=== PATIENT | female | born 1950 ===

== ENCOUNTER 2017-12-07 13:58 | Emergency (ER) | payer OTHER ==
[~2017-12-07] VITALS: Ht 149.9 cm; Wt 91.8 kg
[~2017-12-07 13:58] MED LIST: B-COTAB18 PO; CITA10TA8 PO; CONJ.6255 PO; LYSI100010 PO; NAPR1TAB9 PO; NXM/40 PO; PSYL55.43 PO; TYLOTC500 PO; VITACAP37 PO; ZINC1TAB PO; [UNRECOGNIZED DRUG - REMARK] PO
[2017-12-07 14:03] VITALS: TEMP 36.7; Ht 149.9 cm; Wt 91.8 kg
[2017-12-07] MEDS ORDERED: LIDOCAINE 4% CREAM 15 GM TUBE EXT STA (14:42)
[2017-12-07] MEDS ORDERED: METR-163 PO (14:45)
--- NOTE | 2017-12-07 14:53 | EMERGENCY ROOM VISIT NOTE ---
History First contact with patient: 14:11 Chief Complaint: PELVIC PAIN Stated Complaint: ITCHY BROOK History of Present Illness The patient is a 67 year old female who presents to the Emergency Room with complaints of vaginal itching and pain for the last 2 weeks. The patient saw her inverted block operator. She was initially treated for bacterial vaginosis with a vaginal cream, which she said made her symptoms worse. The patient also was treated for a yeast infection with no improvement. The patient went back to her inverted block operator. She was prescribed Flagyl, which seems to be helping with the internal vaginal discomfort and itching. She still complains of severe itching and pain on the labia majora particularly in the hair level. She describes it as a "biting sensation." She is not sexually active. She has been through menopause. No fever or chills. The patient's inverted block operator also prescribed triamcinolone cream, which provides mild relief. She denies any new soaps, lotions or detergents. Review of Systems 10 system review performed and negative unless noted in HPI or below Past Medical/Surgical History Status post cholecystectomy Family History Diabetes, heart disease Social History Smoking Status: Never Smoker Alcohol Use: none Current/Historical Medications Scheduled Acetaminophen (Tylenol), 1,000 MG PO BID B-Complex Vitamins (Vitamin B Complex), 3 TABS PO QAM Esomeprazole Magnesium (Nexium), 40 MG PO QAM Lidocaine Hcl (Lidocaine), 1 APPLN TD Q6H Lysine Hcl (Lysine), 500 MG PO QAM Metronidazole (Flagyl), 500 MG PO BID Naproxen (Aleve), 220 MG PO BID Psyllium (Metamucil Powder), 1 PACK PO QAM Vitamin E (E-400), 400 PO QAM Zinc Gluconate (Zinc), 50 MG PO QAM [iron ?? dose], 1 TAB PO QAM Scheduled PRN Hydrocodone/Acetaminophen 5MG/325MG ([place] 5MG/325MG), 1-2 TABLET PO Q4H PRN for Pain Physical Exam Vital Signs Date Time Temp Pulse Resp B/P (MAP) Pulse Ox O2 Delivery O2 Flow Rate FiO2 12/07/17 16:14 70 20 169/81 96 12/07/17 15:12 74 20 172/89 95 Room Air 12/07/17 14:03 36.7 84 20 96 Room Air Physical Exam VITALS: Vitals are noted on the nurse's note and reviewed by myself. Vital signs stable. GENERAL: 67-year-old female, in no acute distress, nondiaphoretic, well- developed well-nourished. SKIN: The skin was without rashes, erythema, edema, or bruising. T HEAD: Normocephalic atraumatic. : External genitalia reveal 3, approximately 1 mm, circular, flat, bluish colored lesions on the right labia minora. Minor erythema and irritation noted of the introitus. Speculum exam reveals no vaginal discharge in the vaginal vault. The cervix is pink. No lesions. No foul odor noted. MUSCULOSKELETAL: Strength 5/5 throughout. NEURO: Patient was alert and oriented to person place and time. Normal sensation to touch. No focal neurological deficits. Medical Decision & Procedures Laboratory Results Test 12/07/17 14:30 12/07/17 14:35 Urine Color DK YELLOW Urine Appearance CLOUDY (CLEAR) Urine pH 5.5 (4.5-7.5) Urine Specific [place] 1.027 (1.000-1.030) Urine Protein NEG (NEG) Urine Glucose (UA) NEG (NEG) Urine Ketones NEG (NEG) Urine Occult Blood NEG (NEG) Urine Nitrite NEG (NEG) Urine Bilirubin NEG (NEG) Urine Urobilinogen NEG (NEG) Urine Leukocyte Esterase NEG (NEG) Urine WBC (Auto) 0 /hpf (0-5) Urine RBC (Auto) 0-4 /hpf (0-4) Urine Hyaline Casts (Auto) 1-5 /lpf (0-5) Urine Epithelial Cells (Auto) 10-20 /lpf (0-5) Urine Bacteria (Auto) NEG (NEG) Urine Crystals (NONE PRSENT) Urine Yeast (Auto) (NONE PRSENT) Date/Time Source Procedure Growth Status 12/07/17 14:35 Cervix Swab Trichomonas Preparation - Final Complete Medications Administered Medications (Trade) Dose Ordered Sig/Devin Route Start Time Stop Time Status Last Admin Dose Admin Lidocaine (AneCream 4%) 1 appln ONE STAT EXT 12/07/17 14:42 12/07/17 14:43 DC 12/07/17 14:55 1 APPLN Acetaminophen/ Hydrocodone Bitart ([place] 5/325mg Home Pack) 1 homepack UD ONCE PO 12/07/17 16:15 12/07/17 16:16 DC 12/07/17 16:[address] [facility] ED Course The patient was seen and examined. She was given lidocaine cream Upon reevaluation, the patient's pain was slightly improved. We discussed results. She voiced understanding, was comfortable being discharged home. Discharge instructions were reviewed, and she was discharged in good condition Medical Decision Differential diagnosis: Odette vaginitis, bacterial vaginosis, dermatitis, with malignancy, parasitic infection, lichen simplex This patient is a 67-year-old female that presents to the emergency department with severe vaginal itching and pain. She has been treated for reportedly a yeast infection in addition to bacterial vaginosis with minimal improvement of her symptoms. On exam, she did not have any signs of infection. No discharge or odor. She did have 3 punctate flat lesions on the right labia minora. They were not herpetic in nature. The patient was treated with topical lidocaine, with fairly good symptomatic relief. I believe she needs close follow-up with SOCIAL SCIENCE ANALYST for possible further evaluation such as biopsy. Patient is in agreement with this plan. She will return with any worsening symptoms. This chart was completed in part utilizing [employer] Speech Voice Recognition software. Attempts were made to minimize the grammatical errors, random word insertions, pronoun errors and incomplete sentences. Any formal questions or concerns about the content, text or information contained within the body of this dictation should be directly addressed to the provider for clarification. Medication Reconcilliation Current Medication List: was personally reviewed by me Blood Pressure Screening Patient's blood pressure: Elevated blood pressure Blood pressure disposition: Did not require urgent referral Impression Primary Impression: Vulvar pain Departure Information Dispostion Home / Self-Care Condition GOOD Prescriptions Lidocaine Hcl (LIDOCAINE) 3 % Cre 1 APPLN TD Q6H for Pain, #1 TUBE Prov: Hilary Swenson PA-C 12/07/17 Hydrocodone/Acetaminophen 5MG/325MG ([place] 5MG/325MG) Tab 1-2 TABLET PO Q4H Y for Pain, #10 TAB For Initial Treatment Prov: Hilary Swenson PA-C 12/07/17 Referrals No Doctor, Assigned (PCP) Patient Instructions My [facility] Additional Instructions Please follow-up with your SOCIAL SCIENCE ANALYST doctor as scheduled this week Continue current medications as prescribed Please apply lidocaine cream to the OUTSIDE of the vaginal area every 6 hours as needed for discomfort 1-2 tabs every 4 hours (particularly at night) for severe pain only. Do not drink alcohol or drive while taking this medication. This may be taken with ibuprofen, but avoid Tylenol. Please do not hesitate to return to the emergency department with any new, worsening or concerning pain It was a pleasure participating in your care today
[2017-12-07] MEDS ORDERED: HYDR-5688 PO (15:59)
[2017-12-07] MEDS ORDERED: LIDO1CRE TD (16:08)
[2017-12-07 16:14] VITALS: BP 169/81; PULSE 70; O2SAT 96
[2017-12-07] MEDS ORDERED: NORCO 5/325MG HOME PACK PO ONE (16:15)
--- NOTE | 2017-12-10 15:29 | Pharmacy Progress Note ---
ED Pharmacist Culture FollowUp Date of Service: Dec 10, 2017. Gardnerella vaginalis isolated from pelvic culture. Isolation does not always mean infection. Clue cells negative. Patient was already receiving metronidazole per her web services professional which should cover the Gardnerella growing from the patient's pelvic culture. No further intervention required by ED staff.
== END 2017-12-07 16:15 | disposition home or self-care (01) ==
LOC: C.EDB 13:59
DX: N94.819 Vulvodynia, unspecified (principal); L98.9 Disorder of the skin and subcutaneous tissue, unspecified

== ENCOUNTER 2020-06-13 12:15 | Observation (INO) ==
--- NOTE | 2020-05-06 15:54 | PAT Medication Instructions ---
Medication Instructions Date of Service May 06, 2020 Home Medications Vitamin C 1 dose PO QAM Vitamin D3 1 dose PO QAM citalopram [Celexa] 10 mg PO QAM clobetasol 1 applic TOPICAL UD PRN esomeprazole magnesium [Nexium] 40 mg PO QAM ferrous sulfate [iron] 325 mg PO QAM lysine 1 dose PO QAM magnesium 1 dose PO QAM meloxicam 15 mg PO QAM vitamin E 1 dose PO QAM zinc 1 dose PO QAM ASK your surgeon for instructions meloxicam 15 mg PO QAM STOP taking 2 weeks before surgery vitamin E 1 dose PO QAM zinc 1 dose PO QAM lysine 1 dose PO QAM STOP taking 24 hours before surgery clobetasol 1 applic TOPICAL UD PRN DO NOT take the morning of surgery ferrous sulfate [iron] 325 mg PO QAM magnesium 1 dose PO QAM Vitamin C 1 dose PO QAM Vitamin D3 1 dose PO QAM Take morning of surgery With a small sip of water, OTHERWISE NOTHING TO EAT OR DRINK AFTER MIDNIGHT: citalopram [Celexa] 10 mg PO QAM esomeprazole magnesium [Nexium] 40 mg PO QAM Other Notes If you have any questions please call us at [phone] or [phone] or [phone] or [phone]
--- NOTE | 2020-05-10 13:08 | Anesthesiology Consultation ---
Date of Service May 10, 2020 Assessment & Plan (1) Encounter for pre-operative examination: Chart Review Chart Review: Acceptable Risk for Surgery (pending preop Covid testing ) and Patient seen in Pre Admission Testing Per PAT appt on 05/05/20, patient denies any recent travel. No known Covid positive contacts or Covid related symptoms. Educated patient to follow up with surgeon's office regarding Covid testing. Educated on importance of self quarantining, social distancing and wearing mask in public both for the patient and household contacts. Teaching & Discussion Pre-Anesthesia Teaching/Discussion Notes: Instructed NPO after midnight before surgery,except medications with 15 cc of water. Medication instructions provided according to the PAT guidelines. History Surgery Operation Date: 06/13/20 08:40 Proposed Procedures p Right Total Knee Arthroplasty - Woo Hua MD Height/Weight Height: 4 ft 11.5 in Weight: 85.4 kg Allergies Allergy/AdvReac Type Severity Reaction Status Date / Time Bactrim Allergy Unknown mouth rash Verified 12/07/17 14:46 and swelling Sulfa (Sulfonamide Allergy Unknown mouth Verified 05/05/20 12:42 Antibiotics) rash;mouth swells sulfamethoxazole Allergy Unknown mouth rash Verified 05/05/20 12:42 and swelling trimethoprim Allergy Unknown mouth rash Verified 05/05/20 12:42 and swelling Medications Home Medications Medication Instructions Recorded Confirmed Last Taken Vitamin C 1 dose PO QAM 05/05/20 05/05/20 Unknown Vitamin D3 1 dose PO QAM 05/05/20 05/05/20 Unknown citalopram [Celexa] 10 mg PO QAM 05/05/20 05/05/20 Unknown clobetasol 1 applic TOPICAL UD PRN 05/05/20 05/05/20 Unknown esomeprazole magnesium [Nexium] 40 mg PO QAM 05/05/20 05/05/20 Unknown ferrous sulfate [iron] 325 mg PO QAM 05/05/20 05/05/20 Unknown lysine 1 dose PO QAM 05/05/20 05/05/20 Unknown magnesium 1 dose PO QAM 05/05/20 05/05/20 Unknown meloxicam 15 mg PO QAM 05/05/20 05/05/20 Unknown vitamin E 1 dose PO QAM 05/05/20 05/05/20 Unknown zinc 1 dose PO QAM 05/05/20 05/05/20 Unknown Past Medical History Medical History (Updated 05/10/20 @ 13:25 by Criselda Simmons PA-C) Depression Stable and controlled GERD (gastroesophageal reflux disease) Well controlled and stable History of cardiac murmur as a child No current issues MELITON (obstructive sleep apnea) Minimal - no device needed Urinary leakage Mild - stress incontinence Exercise / Class Metabolic Activity II 4-5 Yardwork/Stairs/Walk up hill (one flight of stairs- no chest pain or SOB) Past Family History Family History Father Diabetes Other No family history of adverse response to anesthesia Past Surgical History Surgical History History of bilateral breast reduction surgery History of cholecystectomy History of colonoscopy History of lumbar surgery History of open reduction and internal fixation (ORIF) procedure LUE History of tonsillectomy History of tooth extraction Past Anesthesia History No Hx of Anesthesia Complications and No Family Hx of Anesthesia Complications History of PONV No Hx of PONV and No Hx of Motion Sickness Social History Smoking Status: Never smoker Do You Dip or Chew Tobacco: No Hx Alcohol Use: Yes Alcohol type: wine alcohol intake frequency: holidays/special occasions only Hx Substance Use: No substance use type: does not use Review of Systems Occ snoring- does have very mild sleep apnea- no device needed Patient denies chest pain, shortness of breath, dyspnea on exertion, cough, wheezing, palpitations. No hx of seizures, stroke, NE. No hx of blood clots or blood transfusions Physical Exam Vital Signs VITALS BP 145/79 P 75 TEMP 98.7 SP02 94% RESP 16 Constitutional no acute distress ENMT Mouth: no TMJ clicking Thyromental Distance: > or= 3.5 Finger Breadths (3.5) Mallampati Class: III Missing molars Crowns to molars Neck neck extension not limited Respiratory normal respiratory effort; no respiratory distress Auscultation: lungs clear to auscultation bilaterally; no wheezes Cardiovascular Rate/Rhythm: regular rate and regular rhythm Heart Sounds: no murmur Vessels: no carotid bruit Musculoskeletal Spine: no pain with cervical ROM Neurologic moves all extremities Psychiatric Orientation: alert Testing Laboratory Results 05/10/20 13:23 05/10/20 13:23 PT 10.9 Seconds (9.0-12.0) 05/10/20 13:23 INR 1.0 (0.9-1.1) 05/10/20 13:23 APTT 29.1 Seconds (21.0-31.0) 05/10/20 13:23 Hemoglobin A1c 6.1 % (4.5-5.6) H 05/10/20 13:23 Urine Color Dark Yellow 05/10/20 13:23 Urine Appearance Clear (Clear) 05/10/20 13:23 Urine pH 6.0 (4.5-7.5) 05/10/20 13:23 Ur Specific [place] 1.017 (1.000-1.030) 05/10/20 13:23 Urine Protein Negative (Negative) 05/10/20 13:23 Urine Glucose (UA) Negative (Negative) 05/10/20 13:23 Urine Ketones Negative (Negative) 05/10/20 13:23 Urine Nitrite Negative (Negative) 05/10/20 13:23 Ur Leukocyte Esterase 1+ (Negative) H 05/10/20 13:23 Urine WBC (Auto) 1-5 /hpf (0-5) 05/10/20 13:23 Urine RBC (Auto) 0-4 /hpf (0-4) 05/10/20 13:23 U Hyaline Cast (Auto) 0 /lpf (0-5) 05/10/20 13:23 U Epithel Cells (Auto) 10-20 /lpf (0-5) H 05/10/20 13:23 Urine Bacteria (Auto) Negative (Negative) 05/10/20 13:23 Blood Type A Positive 05/10/20 13:23 Antibody Screen NEGATIVE 05/10/20 13:23 Electrocardiogram Date: 05/10/20 Findings: + NSR @ (74) Normal EKG. Chest X-Ray Date: 05/10/20 Findings: + NAD
--- NOTE | 2020-05-10 13:54 | XRay Report ---
XR chest Pre-admission PA/Lat HISTORY: Preop. COMPARISON: Chest 09/07/2013. FINDINGS: The lungs are clear. Cardiac silhouette is normal in size. No pleural effusions. No pneumot horax. Cortical plate and screws partially visualized within the mid shaft of the left humerus. Old m ild anterior wedge-shaped compression deformity within the lower thoracic spine remains unchanged. Pa rtially visualized lumbar spinal fusion hardware is noted. IMPRESSION: No significant change compared to the prior study. No acute process. ACT 112: Negative or not required by law. Electronically signed by: Luiz Arreguin M.D. 05/10/2020 1:52 PM
[2020-05-10 14:21] LABS: Basophils # (auto) 0.02 K/uL (0-0.2); Basophils % (auto) 0.3 %; Eosinophils # (auto) 0.21 K/uL (0-0.5); Eosinophils % (auto) 3.2 %; Hematocrit (blood only) 37.1 % (37-47); Hemoglobin 12.1 g/dL (12.0-16.0); Immature Granulocytes # (auto) 0.01 K/uL (0.00-0.02); Immature Granulocytes % (auto) 0.2 %; Lymphocytes # (auto) 2.72 K/uL (1.2-3.4); Mean Corpuscular Hemoglobin 29.4 pg (25-34); Mean Corpuscular Hgb Conc 32.6 g/dL (32-36); Mean Corpuscular Volume 90.3 fL (80-100); Mean Platelet Volume 11.3 fL (7.4-10.4); Monocytes # (auto) 0.43 K/uL (0.11-0.59); Monocytes % (auto) 6.6 %; Neutrophils # (auto) 3.09 K/uL (1.4-6.5); Neutrophils % (auto) 47.7 %; Platelet Count 241 K/uL (130-400); RDW Coefficient of Variation 13.4 % (11.5-14.5); RDW Standard Deviation 44.1 fL (36.4-46.3); Red Blood Count 4.11 M/uL (4.2-5.4); White Blood Count 6.48 K/uL (4.8-10.8)
[2020-05-10 14:28] LABS: Estimated Average Glucose 128 mg/dl; Hemoglobin A1C 6.1 % (4.5-5.6)
[2020-05-10 14:33] LABS: Partial Thromboplastin Time 29.1 Seconds (21.0-31.0); Prothrombin Time 10.9 Seconds (9.0-12.0)
[2020-05-10 14:39] LABS: Appearance Urine Clear (Clear); Bacteria Urine Automated Negative (Negative); Bilirubin Urine Negative (Negative); Blood Urine Negative (Negative); Cast Urine Automated 0 /lpf (0-5); Color Urine Dark Yellow; Glucose Urine UA Negative (Negative); Ketones Urine Negative (Negative); Leukocyte Esterase Urine 1+ (Negative); Nitrite Urine Negative (Negative); Protein Urine Negative (Negative); Specific Gravity Urine 1.017 (1.000-1.030); Urobilinogen Urine Negative (Negative)
[2020-05-10 14:52] LABS: Albumin Level 3.9 gm/dl (3.4-5.0); BUN Creatinine Ratio 23.7 (10-20); Calcium 9.4 mg/dl (8.5-10.1); Creatinine Clr Calc Pharmacy 65.3 ml/min; Est GFR (African American) 89.9; Est GFR (Non-African American) 77.6; RBC Urine Automated 0-4 /hpf (0-4)
--- NOTE | 2020-05-10 15:22 | Electrocardiogram Report ---
Test Reason : Blood Pressure : / mmHG Vent. Rate : 074 BPM Atrial Rate : 074 BPM P-R Int : 136 ms QRS Dur : 074 ms QT Int : 404 ms P-R-T Axes : 057 061 045 degrees QTc Int : 448 ms Normal sinus rhythm Normal ECG When compared with ECG of 07-SEP-2013 10:57, No significant change was found Confirmed by Brenden Villa ([id number]) on 05/10/2020 3:22:04 PM Referred By: Woo Hua Confirmed By:Brenden Villa
--- NOTE | 2020-06-12 15:22 | History and Physical Report ---
DATE OF ADMISSION: 06/13/2020 CHIEF COMPLAINT: Chronic right knee pain and instability. HISTORY OF PRESENT ILLNESS: This is a 70-year-old female patient of Dr. Hua'eric complaining of chronic right knee pain and instability, longstanding, now progressively getting worse. The patient has failed conservative treatment including intraarticular injections, anti-inflammatories, Tylenol, the use of a brace and home exercise programs. The patient has increased pain with weightbearing activities and her pain does interfere with her activities of daily living. She has been diagnosed with end-stage osteoarthritis per clinical and radiographic exams and wishes to proceed with a right total knee arthroplasty. PAST MEDICAL HISTORY: Sleep apnea, anxiety, back problems, acid reflux, obesity, history of breast cancer. SOCIAL HISTORY: Nonsmoker and nondrinker. PAST SURGICAL HISTORY: Back surgery, breast reduction surgery, left arm fracture surgery and gallbladder surgery. FAMILY HISTORY: Noncontributory. REVIEW OF SYSTEMS: Chronic right knee pain and instability. Otherwise, denies any shortness of breath, chest pain, nausea, vomiting or other joint complaints. MEDICATIONS: 1. Nexium 40 mg daily. 2. Meloxicam 15 mg daily. 3. Celexa 10 mg daily. 4. Iron 325 mg daily. 5. Vitamin E 1000 units daily. 6. Calcium 600 mg daily. ALLERGIES: BACTRIM, WHICH CAUSES HIVES AND SWOLLEN MOUTH. PHYSICAL EXAMINATION: GENERAL: Well-developed, well-nourished 69-year-old female in no acute distress. She is alert and oriented x3 and pleasant. HEENT: Normocephalic, atraumatic. Extraocular motions are intact. Pupils are equal and reactive to light. HEART: Regular rate and rhythm, no murmurs. LUNGS: Clear. ABDOMEN: Soft and nontender. Bowel sounds present. EXTREMITIES: Right knee, 0 to 120 range of motion. Positive effusion. Medial joint line tenderness, varus deformity, 4/5 strength with pain and crepitation. Neurologically and neurovascularly, she is intact in her right lower extremity. DIAGNOSES: Right knee end-stage osteoarthritis, sleep apnea, anxiety, osteoarthritis, back problems, acid reflux, obesity, history of breast cancer. PLAN: The patient was advised of her diagnosis. Indications, risks, benefits, postop course have all been reviewed. The patient wished to proceed with a right total knee arthroplasty. Necessary consent forms, preoperative testing and clearances will be obtained.
[~2020-06-13 12:15] MED LIST changes: +ACETAMINOPHEN 500 MG TAB PO SCH; -B-COTAB18 PO; +BUPIVACAINE 0.25% 30 ML VIAL ONE; +BUPIVACAINE 0.5 % 5 MG/1 ML PF 10ML VIAL ONE; -CITA10TA8 PO; -CONJ.6255 PO; +FAMOTIDINE 20 MG TAB PO SCH; +GABAPENTIN 300 MG CAP PO SCH; +LIDOCAINE HCL 2% 2 ML VIAL/AMP(20MG/ML) INFIL ONE; +LR 500ML BOLUS, THEN 15ML/HR IV SCH; -LYSI100010 PO; +METOCLOPRAMIDE HCL 10 MG TABLET PO SCH; +MIDAZOLAM HCL 1 MG/ML 2ML VIAL ONE; -NAPR1TAB9 PO; -NXM/40 PO; +PROPOFOL IV EMULSION 10 MG/ML 20 ML VIAL IV ONE; -PSYL55.43 PO; +ROPIVACAINE 0.5% HCL/PF 150 MG, BUPIVACAINE 0.5% MPF 30 ML, EPINEPHrine 30MG/30ML (OR U... INSTIL SCH; +TRANEXAMIC ACID 1,000 MG **IV Pre-op IV SCH; -TYLOTC500 PO; -VITACAP37 PO; -ZINC1TAB PO; -[UNRECOGNIZED DRUG - REMARK] PO; +ceFAZolin 2000MG 2,000 MG/15 ML SYR IV SCH; +dexAMETHasone 4 MG TAB PO SCH
[2020-06-13] MEDS ORDERED: ATROPINE SULFATE 0.1 MG/ML 10ML SYR IV PRN (12:38)
[2020-06-13] MEDS ORDERED: HYDROmorphone INJ 1 MG/ML SYRINGE IV PRN (12:38)
[2020-06-13] MEDS ORDERED: ONDANSETRON INJ 2 MG/ML 2 ML VIAL IV PRN ×2 (12:38→18:00)
[2020-06-13] MEDS ORDERED: fentaNYL citrate 100 MCG/2 ML VIAL IV PRN (12:38)
[2020-06-13] MEDS ORDERED: ePHEDrine sulfate 50 MG/ML AMP IV PRN (12:38)
[2020-06-13] MEDS: TRANEXAMIC ACID 1,000 MG **IV Intra-op IV SCH ×2 (12:54→15:36)
[2020-06-13] MEDS ORDERED: ORTHO JOINT ANESTHETIC ONE (13:23)
[2020-06-13] MEDS ORDERED: BACITRACIN INJ 50,000 UNIT VIAL ONE (13:23)
--- NOTE | 2020-06-13 13:42 | History & Physical Bridge Note ---
Date of Service June 13, 2020 History & Physical Bridge Note I have examined the patient, reviewed the History & Physical and in the interval since the performance of the History & Physical I have noted the following changes of clinical significance: no changes noted
--- NOTE | 2020-06-13 15:35 | Operative Report ---
Post Operative Report Pre & Post Diagnosis Operation Date: 06/13/20 14:50 Pre-Op Diagnosis: Right Knee Osteoarthritis Post-Op Diagnosis: Right Knee Osteoarthritis I identified the patient and participated in the time-out.: Yes Procedure Operation Date: 06/13/20 14:50 Actual Procedures p Right Total Knee Arthroplasty(Right) - Woo Hua MD Surgeon Woo Hua MD Concrete Analyst Jasbir ARCE Estimated Blood Loss 5 Findings Consistent with Post-Op Diagnosis Specimens Bone cuts Drains 2 Hemovac Anesthesia Type MAC Spinal Regional Complications none Disposition Accompanied Patient To Recovery: No Disposition: Recovery Room Indications 70-year-old female progressive osteoarthritis in right knee. Patient has patellofemoral medial compartment osteoarthritis varus knee [id number] medial compartment some stretching of her lateral collateral ligament. Description of Procedure Patient was taken to the operating room placed supine on the operating table and anesthetized under spinal MAC regional anesthesia. Exam under anesthesia demonstrated tight medial compartment laxity LCL 0 through 140 degrees range of motion no AP instability. A pneumatic tourniquet was placed about the moderately obese thigh of the right lower extremity. The right lower extremity was prepped and draped in usual fashion. The leg was elevated exsanguinated with an Esmarch bandage and the pneumatic was raised to 325 mm mercury. An anterior incision was made across the right knee. The skin was incised longi tudinally subcutaneous flaps were elevated and an incision was made through the medial retinaculum extending up into the mid third of the quadriceps tendon and extended down to the medial tibial tubercle. Intra-articular findings demonstrated mid compartment and patellofemoral OA. Grade 3 patellofemoral OA with osteophytes around the entire patella and grade 4 medial compartment osteoarthritis with eburnated bone. The knee was exposed by excising the infrapatellar fat pad, excising the meniscal remnants and anterior cruciate ligament. Any inflamed synovial tissue was resected. The fat pad over the anterior femur was resected for placement of the component in that area. The lateral synovial bands were release. The femur was exposed. The custom femoral cutting block was pinned in position. The distal femoral cutting block was applied. The distal femoral cut was made with the oscillating saw. The size 7, 4-in-1 cutting block was placed. The anterior and posterior chamfer cuts were made. The knee was extended and a subperiosteal peel lateral release was performed around the patella. The patella width was measured and width was reproduced using freehand cut technique. The 32 x 8.5 millimeter symmetrical patella was used. 3 drill holes are made for the pegs. The tibia was exposed. A custom tibial cutting block was positioned and drill holes were made for the cutting guide. I was not satisfied with the alignment so I used an external tibial cutting guide which was placed perpendicular to the long axis of the tibia placing in the appropriate slope and the proximal cut was made with the oscillating saw. All osteophytes were resected. The lamina customer service trainer was used to assess ligamentous balance and the ligaments were balanced in extension and flexion. This required medial, posterior medial release and some minor pie crusting of the anterior MCL the tibia was reexposed and measured for a size D tibial component. This was externally rotated in line with the tibial tubercle and the fixation pins were drilled. The proximal tibia was fashioned with the drill and punch. The size 7 CR femoral trial was inserted. The trial MC inserts were used. The 11 mm insert gave balanced ligaments through full range of motion. The patella tracked centrally. the trials were removed. The orthomix anesthetic cocktail was injected per protocol. The knee was then c opiously irrigated with pulsatile lavage antibiotic solution with bacitracin. The final components were cemented with Simplex cement. The final components were [employer] persona 7 narrow CR right femur, D tibia, 11 mm MC tibial polyethylene, 32 x 8.5 polyethylene patella. After the cement cured with the knee in full extension the Betadine soak was used per protocol. The knee joint was copiously irrigated with antibiotic solution with bacitracin. 2 drains were brought out laterally and connected to a Hemovac. The quadriceps tendon and medial retinaculum were closed with interrupted [id number] #1 Vicryl sutures. The knee was taken through a full range of motion and repair was secure. The subcutaneous tissues were closed with 2-0 Vicryl sutures and skin was closed with jaja. Sterile dressings were applied and the patient tolerated the procedure well. Jasbir ARCE my physician customer marketing assistant, assisted in soft tissue retraction instrument management leg positioning the closure and will participate in the postoperative care of the patient. I attest to the content of the Intraoperative Record and any orders documented therein. Any exceptions are noted below.
--- NOTE | 2020-06-13 16:24 | Anesthesiology Progress Note ---
Date of Service June 13, 2020 Anesthesia Post Procedure Vital Signs Vital Signs: Temp Pulse Pulse Resp BP BP Pulse Ox 06/13/20 16:10 74 14 121/72 99 06/13/20 16:04 37 C 80 12 122/62 97 06/13/20 13:10 69 18 179/100 H 96 06/13/20 12:39 36.8 C 72 18 196/95 H 97 Transfer of Care Handoff Completed per policy Notes Mental Status: alert / awake / arousable and participated in evaluation Nausea / Vomiting: adequately controlled Pain: adequately controlled Airway Patency, RR, SpO2: stable & adequate BP & HR: stable & adequate Hydration State: stable & adequate Neuraxial Anesthesia: was administered and sensory block is resolving Anesthetic Complications: no major complications apparent
--- NOTE | 2020-06-13 16:37 | XRay Report ---
XR knee RT 1 or 2V routine CLINICAL HISTORY: Postoperative evaluation. COMPARISON: None FINDINGS: Alignment of the total right knee arthroplasty is anatomic. There is no periprosthetic fra cture or unexpected radiopaque foreign body. Surgical drain is in place. There are skin jaja. IMPRESSION: Expected findings following total right knee arthroplasty. ACT 112: Negative or not required by law. Electronically signed by: Gucci Graham M.D. 06/13/2020 4:35 PM
--- NOTE | 2020-06-13 16:59 | Anesthesiology Progress Note ---
Date of Service June 13, 2020 Anesthesia Post Procedure Vital Signs Vital Signs: Temp Pulse Pulse Resp BP BP Pulse Ox 06/13/20 16:50 36.4 C L 65 14 160/87 H 98 06/13/20 16:40 68 17 163/90 H 98 06/13/20 16:30 71 16 152/93 H 95 06/13/20 16:20 75 16 135/68 100 06/13/20 16:10 74 14 121/72 99 06/13/20 16:04 37 C 80 12 122/62 97 06/13/20 13:10 69 18 179/100 H 96 06/13/20 12:39 36.8 C 72 18 196/95 H 97 Transfer of Care Handoff Completed per policy Notes Mental Status: alert / awake / arousable and participated in evaluation Patient Amnestic to Procedure: Yes Nausea / Vomiting: adequately controlled Pain: adequately controlled Airway Patency, RR, SpO2: stable & adequate BP & HR: stable & adequate Hydration State: stable & adequate Anesthetic Complications: no major complications apparent
[2020-06-13] MEDS ORDERED: HYDROmorphone INJ 0.5 MG/0.5 ML SYR IV PRN (17:16)
[2020-06-13] MEDS ORDERED: oxyCODONE HCL IR 5 MG TAB (IMMEDIATE RELEASE) PO PRN (17:16)
[2020-06-13] MEDS ORDERED: NALOXONE HCL 0.4 MG/1 ML VIAL/CARP IV PRN (18:00)
[2020-06-13] MEDS ORDERED: SODIUM CHLORIDE 0.9% 1000ML 1,000 ML IV SCH (18:00)
[2020-06-13] MEDS ORDERED: bisacodyL 10 MG SUPP PR PRN (18:00)
[2020-06-13] MEDS ORDERED: MAGNESIUM HYDROXIDE SUSP 30 ML UDC PO PRN (18:00)
[2020-06-13] MEDS: DOCUSATE SODIUM 100 MG CAP PO SCH (20:50)
[2020-06-13] MEDS: FERROUS GLUCONATE 324 MG TAB PO SCH (20:50)
[2020-06-13] MEDS: ASPIRIN 81 MG ECTAB PO SCH (20:50)
[2020-06-13] MEDS ORDERED: SENNA 8.6 MG TAB PO SCH (21:00)
[2020-06-13] MEDS: ACETAMINOPHEN 500 MG TAB PO SCH (21:34)
[2020-06-13] MEDS: ceFAZolin 2000MG 2,000 MG/15 ML SYR IV SCH (21:35)
[2020-06-14] MEDS: ACETAMINOPHEN 500 MG TAB PO SCH ×2 (05:17→14:36)
[2020-06-14] MEDS: ceFAZolin 2000MG 2,000 MG/15 ML SYR IV SCH (05:18)
[2020-06-14 05:51] LABS: Hematocrit (blood only) 34.8 % (37-47); Hemoglobin 11.5 g/dL (12.0-16.0); Mean Corpuscular Hemoglobin 30.2 pg (25-34); Mean Corpuscular Volume 91.3 fL (80-100); Mean Platelet Volume 11.1 fL (7.4-10.4); Platelet Count 260 K/uL (130-400); RDW Coefficient of Variation 13.7 % (11.5-14.5); RDW Standard Deviation 45.4 fL (36.4-46.3); Red Blood Count 3.81 M/uL (4.2-5.4); White Blood Count 13.09 K/uL (4.8-10.8)
[2020-06-14 06:17] LABS: BUN Creatinine Ratio 25.9 (10-20); Calcium 9.1 mg/dl (8.5-10.1); Creatinine Clr Calc Pharmacy 64.6 ml/min; Est GFR (African American) 89.3
[2020-06-14] MEDS: FERROUS GLUCONATE 324 MG TAB PO SCH (07:57)
[2020-06-14] MEDS: DOCUSATE SODIUM 100 MG CAP PO SCH (07:58)
[2020-06-14] MEDS: ASPIRIN 81 MG ECTAB PO SCH (07:58)
--- NOTE | 2020-06-14 08:00 | Orthopedic Progress Note ---
Date of Service June 14, 2020 Assessment & Plan (1) Arthritis of right knee: POD #1, Right TKA PT/ OT DVT proph- ASA D/C plans - Home today with HH after 1500 if pain controlled and ambulating well. Admission and Anticipated Discharge Date Admission Date: June 13, 2020 Subjective POD #1, Doing well. Denies SOB, CP, N/V, Dizziness. Pain controlled well. Wishes to go home today with HH, drain output 105cc's. Physical Exam Physical Exam: Right knee dressings c/d/i, no drainage. Toes/ankle mobile. No calf tenderness. A&Ox3. VSS. Results & Data ([facility]) Vital Signs (Past 12 Hours) Vital Signs Temp Pulse Resp BP Pulse Ox 06/14/20 03:03 36.7 C 67 16 148/86 H 93 06/13/20 23:24 157/84 H 06/13/20 23:23 36.7 C 69 16 158/98 H 96 06/13/20 20:20 36.6 C 69 17 166/90 H 95
[2020-06-14] MEDS ORDERED: PANTOprazole 40 MG TAB PO SCH (09:00)
[2020-06-14] MEDS ORDERED: CITALOPRAM 20 MG TAB PO SCH (09:00)
[2020-06-14] MEDS ORDERED: MULTIVITAMIN TAB PO SCH (09:00)
--- NOTE | 2020-06-14 12:55 | Anesthesiology Progress Note ---
Date of Service June 14, 2020 Anesthesia Post Procedure Vital Signs Vital Signs: Temp Pulse Pulse Resp BP BP Pulse Ox 06/14/20 09:03 36.8 C 79 18 151/68 H 96 06/14/20 03:03 36.7 C 67 16 148/86 H 93 06/13/20 23:24 157/84 H 06/13/20 23:23 36.7 C 69 16 158/98 H 96 06/13/20 20:20 36.6 C 69 17 166/90 H 95 06/13/20 19:32 36.5 C 79 16 149/78 H 93 06/13/20 18:16 65 16 146/87 H 98 06/13/20 17:45 36.4 C L 61 16 157/84 H 98 06/13/20 17:15 36.8 C 65 16 149/89 H 99 06/13/20 17:00 65 18 161/91 H 98 06/13/20 16:50 36.4 C L 65 14 160/87 H 98 06/13/20 16:40 68 17 163/90 H 98 06/13/20 16:30 71 16 152/93 H 95 06/13/20 16:20 75 16 135/68 100 06/13/20 16:10 74 14 121/72 99 06/13/20 16:04 37 C 80 12 122/62 97 06/13/20 13:10 69 18 179/100 H 96 Notes Mental Status: alert / awake / arousable and participated in evaluation Nausea / Vomiting: adequately controlled Pain: adequately controlled Airway Patency, RR, SpO2: stable & adequate BP & HR: stable & adequate Hydration State: stable & adequate Neuraxial Anesthesia: was administered and sensory block resolved Anesthetic Complications: no major complications apparent and Pt Satisfied with anesthetic care
--- NOTE | 2020-06-22 21:09 | Discharge Summary (DS) ---
HISTORY OF PRESENT ILLNESS: This is a 70-year-old female patient of Dr. Hua's complaining of chronic right knee pain and instability, longstanding, now progressively getting worse. The patient failed conservative treatment and elected to proceed with a right total knee arthroplasty. PAST MEDICAL HISTORY: Sleep apnea, anxiety, back problems, acid reflux, obesity and history of breast cancer. POSTOPERATIVE COURSE: The patient underwent a right total knee arthroplasty on 06/13/2020. She was followed closely with medical consultation, DVT prophylaxis in the form of aspirin, pain control and physical therapy. The patient did very well postoperatively and was discharged home on postoperative day #1. PHYSICAL EXAMINATION: On discharge, right knee dressings were clean, dry and intact. Dressings and drain were changed and pulled respectively due to low output from the drain. This was done prior to discharge. PLAN: The patient was going home with home health services. She will continue her preadmission medications as well as the addition of aspirin for DVT prophylaxis and pain medications as needed. The patient will follow up with Dr. Hua in the office as scheduled.
== END 2020-06-14 17:01 | disposition home health service (06) ==
LOC: ASU 12:15 → 3E 12:15